=== PATIENT | female | born 1955 | race Caucasian/White ===

== ENCOUNTER 2020-08-08 12:30 | Outpatient (CLI) | payer MEDICARE, MEDICAID, SELFPAY | END 2020-08-08 23:55 | disposition home or self-care (01) | LOC: SPT 09-05 08:11 | PROVIDERS: PCP Nurse Practitioner; Referring Provider Nurse Practitioner; Visit Provider Nurse Practitioner | DX: Z46.89 Encounter for fitting and adjustment of other specified devices (principal); M41.9 Scoliosis, unspecified; G89.29 Other chronic pain; M54.9 Dorsalgia, unspecified; R53.1 Weakness; M21.379 Foot drop, unspecified foot | CPT/HCPCS: L0456 ==

== ENCOUNTER 2020-08-24 13:08 | Emergency (ER) | payer MEDICARE, MEDICAID, SELFPAY ==
[2020-08-24 13:10] VITALS: BP 159/115; PULSE 103; RESP 18; TEMP 36.7; O2SAT 97; BMI 29.2
[2020-08-24 13:19] VITALS: BP 135/84; PULSE 88; RESP 18; O2SAT 95
--- NOTE | 2020-08-24 13:42 | XR_ITS ---
WS: [id number] Left arm and humerus, 2 views, AP and lateral views, 08/24/2020 Clinical Data: pain Comparison: Left shoulder, 08/24/2020 Findings: There is an impacted fracture of the left humeral neck into the left humeral head. The shaft of the h umerus and the visualized left elbow are unremarkable. The soft tissues are normal. XR/[place] [id number] Impression: Impacted fracture of left humeral neck into the left humeral head.
--- NOTE | 2020-08-24 13:42 | XR_ITS ---
WS: [id number] Left shoulder, 3 views, 08/24/2020 Clinical Data: pain Comparison: None. Findings: There is a fracture of the left humeral neck with impaction of the humeral head in the humeral neck. The AC joint is intact. The adjacent left clavicle, left scapula and ribs are intact. There is an old healed left fifth rib fracture. Soft tissues are normal XR/XR shoulder LT min 2V* [id number] Impression: Impacted fracture of left humeral neck.
--- NOTE | 2020-08-24 14:21 | ED_ITS ---
HPI - Extremity Problem General: Chief complaint: Extremity Injury, Upper Stated complaint: ARM PAIN Time Seen by Provider: 08/24/20 13:16 History of Present Illness: HPI Narrative: 65-year-old female presents emergency room with complaint of left upper arm pain. She had a stroke 5 days ago was being discharged from [facility] in [place]. Her was trying to help her out of the chair and he lifted her up by holding her arms over the shoulders and standing essentially trying to give her a piggyback ride he felt a snapping sensation in her left proximal humerus this occurred yesterday. She has a sling and swath on when she arrives here today. Patient arrived here from home via EMS. She denies any other injuries. She did not have any worsening of her neurologic symptoms she previously had a stroke and had some right-sided weakness as well her left-sided weakness is more profound. MD Complaint: extremity pain and extremity swelling Onset (ago): hour(s) Pain Consistency: constant Location: left Quality: sharp Radiation: none Relieving factors: immobilization and rest Exacerbating factors: range of motion and palpation Associated symptoms: Deny arthralgias, chest pain, fever(s), myalgias, rash or short of breath Review of Systems Const: Denies: fever(s) ENMT: Denies: throat pain, ear or mastoid pain, nasal discharge or nasal congestion Card: Denies: chest pain Resp: Denies: dyspnea, productive cough or non-productive cough GI: Denies: abdominal pain, nausea, vomiting, hematemesis, coffee ground emesis, diarrhea, constipation, bloating, hematochezia or melena : Denies: flank pain, difficulty voiding, dysuria, urinary frequency or urinary urgency Skin/Breast: Denies: rash [facility] ED PFSH: Medical History (Updated 08/24/20 @ 14:29 by Tarun Castaneda DO) CVA (cerebral vascular accident) Physical Exam Const: COMMON NORMALS: no acute distress GENERAL APPEARANCE: cooperative and comfortable HENMT: COMMON NORMALS: normocephalic, atraumatic and hearing grossly normal bilaterally HEAD & SCALP: normocephalic and atraumatic Eye: COMMON NORMALS: Equal, round and reactive pupils present, EOMs intact bilaterally, conjunctivae normal and no scleral icterus CONJUNCTIVA: Yes conjunctivae normal PUPIL: Yes Equal, round and reactive pupils present Neck/C-Spine: COMMON NORMALS: no JVD Resp: COMMON NORMALS: normal respiratory effort, No retractions, No use of accessory muscles and clear to auscultation bilaterally AUSCULTATION: clear to auscultation bilaterally Cardio: COMMON NORMALS: no JVD, regular rate, regular rhythm and No murmurs present (Cardio) RATE: regular rate RHYTHM: regular rhythm GI: COMMON NORMALS: Soft to palpation and No hepatosplenomegaly present AUSCULTATION: Yes normoactive bowel sounds PALPATION: Yes Soft to palpation, No Tenderness to palpation present (GI), No Guarding due to palpation present (GI) and Yes No hepatosplenomegaly present Extremity: NARRATIVE EXTREMITY EXAM: Left arm is in a sling and swath wounds. Patient has good registered dental hygienist strength is unable to extend her fingers is present due to her previous CVA. She has good peripheral pulses. Decreased sensation secondary to previous CVA. Swelling and mild deformity of the proximal humerus. Skin: COMMON NORMALS: no rashes or lesions noted GENERAL SKIN EXAM: no rashes or lesions noted Course Vital Signs: Vital signs: Vital Signs Temperature 98.0 F 08/24/20 13:10 Pulse Rate 88 08/24/20 13:19 Respiratory Rate 18 08/24/20 13:19 Blood Pressure 135/84 08/24/20 13:19 Pulse Oximetry 95 08/24/20 13:19 MDM - Extremity (Nontraumatic) MDM Narrative: Medical decision making narrative: X-ray shows proximal humerus fracture will discharge home in sling and have him follow-up with orthopedics early next week ice pain control maintain the sling until released by Ortho. Discharge Plan Discharge Patient Disposition: Home Clinical Impression: Fracture of humerus Condition: Stable Prescriptions: New hydrocodone-acetaminophen 5-325 mg tablet 1 tab PO Q6H PRN (Reason: pain) Qty: 25 RF: 0 Discharge Orders: Discharge ED (Routine); Ordered 08/24/20 Ordered By: Tarun Castaneda Activity Restrictions/Additional Instructions: Case management will call with referral to orthopedics for definitive treatment of fracture Coding Level of Care Code ED Analysis Evaluator for Bobby Fisher
[2020-08-24] MEDS: morphine 4 mg/mL SDV 1 mL 2 MG IM (15:07)
[2020-08-24 16:39] VITALS: BP 135/84; PULSE 88; RESP 18; O2SAT 95
--- NOTE | 2020-08-28 12:19 | DCPLANNER ---
senior online marketing manager had message to schedule a follow up appointment for patient with ortho. senior online marketing manager called the ortho clinic, spoke with Cecille, gave clinic patients information. senior online marketing manager was told that patients information would be printed and reviewed. Clinic will call patient with appointment information.
--- NOTE | 2020-08-29 13:18 | DCPLANNER ---
Patient had a follow up appointment scheduled for 08.29.20 with ortho - patient cancelled the appointment.
== END 2020-08-24 16:39 | disposition home or self-care (01) ==
LOC: ER 14:47
PROVIDERS: Emergency Provider Family Medicine; PCP Nurse Practitioner
DX: S42.202A Unspecified fracture of upper end of left humerus, initial encounter for closed fracture (principal); X50.9XXA Other and unspecified overexertion or strenuous movements or postures, initial encounter; Z86.73 Personal history of transient ischemic attack (TIA), and cerebral infarction without residual deficits
CPT/HCPCS: 12345; 73030; 73060; 96372; 99282; 99283; J2270

== ENCOUNTER 2021-01-23 13:21 | Outpatient (CLI) | payer MEDICARE, MEDICAID, SELFPAY ==
[2021-01-23 13:48] LABS: Basophils % 0.3 %; Eosinophils # 0.1 10^3/uL (0.0-0.8); Eosinophils % 0.7 %; Hematocrit 38.5 % (37.0-47.0); Hemoglobin 12.2 g/dL (11.5-15.3); Lymphocytes # 1.1 10^3/uL (0.8-4.8); Mean Corpuscular HGB Conc 31.7 g/dL (30.0-36.0); Mean Corpuscular Volume 94.6 fL (81-99); Mean Platelet Volume 10.4 fL (7.4-10.4); Monocytes # 0.3 10^3/uL (0.2-0.9); Monocytes % 4.6 %; Neutrophils # 5.58 10^3/uL (1.8-7.7); Neutrophils % 78.1 %; Nucleated Red Blood Cells % 0 %; Platelet Count 218 10^3/cmm (130-400); Red Blood Count 4.07 10^6/uL (4.1-5.3); Red Cell Distribution Width 14.4 % (12.1-15.1); White Blood Count 7.1 10^3/uL (4.0-10.0)
[2021-01-23 14:21] LABS: Alanine Aminotransferase 22 U/L (0-33); Albumin Level 3.7 g/dL (3.5-5.2); Alkaline Phosphatase 136 IU/L (35-105); Anion Gap 11.2 (5-19); Aspartate Amino Transferase 16 U/L (0-32); Blood Urea Nitrogen 6 mg/dL (8-23); Calcium 8.7 mg/dL (8.5-10.5); Carbon Dioxide 27 mmol/L (22-29); Chloride 104 mmol/L (98-107); Chol HDL Ratio 2.78 mg/dL (0.0-4.40); Cholesterol 153 mg/dL (0-200); Globulin 2.8 g/dL (1.3-4.6); Glomerular Filtration Rate 123.4 mL/min (90-130); Glucose 113 mg/dL (65-115); HDL Cholesterol 55 mg/dL (60-100); LDL Cholesterol Calculated 80 mg/dL (50-129); LDL HDL Ratio 1.45 RATIO (0.00-3.22); Osmolality Calculated 284 mOsm/kg (285-295); Potassium 4.2 mmol/L (3.5-5.1); Sodium 138 mmol/L (136-145); Total Bilirubin 0.2 mg/dL (0.15-1.2); Total Protein 6.5 g/dL (6.6-8.7); Triglycerides 89 mg/dL (0-150)
== END 2021-01-23 13:22 | disposition home or self-care (01) ==
PROVIDERS: PCP Nurse Practitioner; Visit Provider Family Medicine
DX: I10 Essential (primary) hypertension (principal)
CPT/HCPCS: 80053; 80061; 85025

== ENCOUNTER 2021-02-08 13:02 | Outpatient (CLI) | payer MEDICARE, MEDICAID, SELFPAY ==
--- NOTE | 2021-02-08 13:08 | XR_ITS ---
WS: [id number] Bone mineral density performed on a [employer], 02/08/2021 Clinical data: OSTEOPOROSIS SCREENING, AYSYMPTOMATIC POSTMENOPAUSAL STATUS Findings: The first 4 lumbar vertebral bodies demonstrated the bone mineral density of 0.993 g/sq cm for a rubens g adult T score of -1.7. There is a levoscoliosis. Measurement of the left hip reveals a bone mineral density of 0.722 g/cm2 with a young adult T score of -2.3. Measurement of the right hip reveals the bone mineral density of 0.755 g/cm2 for young adult T score of -2.0. XR/XR DEXA axial skeleton* [id number] Impression: Osteopenia of the lumbar spine and both hips.
== END 2021-02-08 13:03 | disposition home or self-care (01) ==
PROVIDERS: PCP Nurse Practitioner; Visit Provider Family Medicine
DX: Z13.820 Encounter for screening for osteoporosis (principal); Z78.0 Asymptomatic menopausal state; M85.89 Other specified disorders of bone density and structure, multiple sites
CPT/HCPCS: 77080

== ENCOUNTER 2021-02-08 14:02 | Outpatient (CLI) | payer MEDICARE, MEDICAID, SELFPAY ==
--- NOTE | 2021-02-08 14:07 | CT_ITS ---
WS: [id number] LDCT LUNG CANCER SCREENING TECHNIQUE: Noncontrast CT of the chest with coronal and sagittal reformatted images. CLINICAL INFORMATION: NICOTINE DEPENDENCE COMPARISON: None. DLP: 52.6 mGy.cm DIvol: 1.[address] scans at [facility] use at least one of these dose optimization techniques: automat ed exposure control; mA and/or kV adjustment per patient size (includes targeted exams where dose is matched to clinical indication); or iterative reconstruction. FINDINGS: Spiculated nodule left lower lobe measuring 13 x 12 mm has a suspicious appearance. Recommend further evaluation with PET/CT. Moderate chronic emphysematous changes. No acute pulmonary infiltrates. Small subpleural nodule right upper lobe measuring 7 mm. Aortic calcification. Coronary calcification. A few prominent anterior me diastinal lymph nodes. Adrenal glands are normal. Chronic anterior wedging at the thoracolumbar junction. CT/CT lung screening [id number] IMPRESSION: LUNG-RADS: 4B-Suspicious FOLLOW UP: PET/CT recommended RECOMMEND PET/CT FOR THE SUSPICIOUS SPICULATED LEFT LOWER LOBE 12 X 13 MM NODUL E. Recommend 6 month follow-up LDCT or chest CT for the noncalcified 7 mm nodule r ight upper lobe.
== END 2021-02-08 14:03 | disposition home or self-care (01) ==
LOC: RAD 14:03
PROVIDERS: PCP Nurse Practitioner; Visit Provider Family Medicine
DX: Z12.2 Encounter for screening for malignant neoplasm of respiratory organs (principal); R91.1 Solitary pulmonary nodule; F17.200 Nicotine dependence, unspecified, uncomplicated
CPT/HCPCS: 71271

== ENCOUNTER → 2021-03-08 11:46 | Outpatient (BNVA) | payer MEDICARE, MEDICAID, SELFPAY | PROVIDERS: PCP Family Medicine; Visit Provider Internal Medicine Pulmonary Disease | DX: Z01.812 Encounter for preprocedural laboratory examination (principal); Z20.822 Contact with and (suspected) exposure to COVID-19 | CPT/HCPCS: 87635 ==

== ENCOUNTER 2021-03-13 12:39 | Outpatient (CLI) | payer MEDICARE, MEDICAID, SELFPAY ==
--- NOTE | 2021-03-13 13:05 | PFTS_ITS ---
Date of Study:03/13/21 Date of Dictation: MECHANICS: Forced vital capacity (FVC) is normal. Forced expiratory volume in one second (FEV1) is reduced. FEV1/FVC is reduced. FLOW VOLUME LOOP: Reduced flow at all lung volumes with significant scooping. LUNG VOLUMES: Not measured DIFFUSING CAPACITY FOR CARBON MONOXIDE: Moderately reduced. INTERPRETATION: The pulmonary function tests are consistent with moderate airflow obstruction. There is no significant postbronchodilator response. Lung volumes are not measured. Gas exchange (DLCO) is moderately reduced. MTDD
== END 2021-03-13 12:40 | disposition home or self-care (01) ==
PROVIDERS: PCP Family Medicine; Visit Provider Internal Medicine Pulmonary Disease
DX: J44.9 Chronic obstructive pulmonary disease, unspecified (principal)
CPT/HCPCS: 94060; 94729

== ENCOUNTER → 2021-03-18 10:08 | Outpatient (BNVA) | payer MEDICARE, MEDICAID, SELFPAY | PROVIDERS: PCP Family Medicine; Visit Provider Nurse Practitioner | DX: I69.398 Other sequelae of cerebral infarction (principal); G40.909 Epilepsy, unspecified, not intractable, without status epilepticus; F17.210 Nicotine dependence, cigarettes, uncomplicated | CPT/HCPCS: 99205 ==